=== PATIENT | male | born 1930 | race Caucasian/White ===

== ENCOUNTER → 2016-06-17 | Outpatient (CLI) | payer OTHER, MEDICARE ==
[~2016-06-17] VITALS: Ht 182.9 cm; Wt 68.9 kg
[~2016-06-17] MED LIST: APAP650 PO; ARICEPT10 M1 PO; ASPIR 8181 MG PO; FENTANYL PA25 MCG/HR TRANSDERM; FISHOIL PO; GLUCOSAMINE &1 EAC1 PO; LIPITOR40 MG PO; NEILMED SINUS R1 KIT; NORCO 5-325 TA1 EACH PO; PLAVIX 75 MG TA75 MG PO; PRAVACHOL40 MG PO; PRILOSEC20 MG PO; SEROQUEL 25 MG25 M1 PO; TRAMADOL 50 MG50 MG PO
--- NOTE | ~2016-06-17 | P ---
[facility] [place] [address] PROCEDURE REPORT Name: MERCEDEZ XAVIER JR Room #: [facility] [id number] Admission: 06/17/16 Attend Phys: Mercedez Mares DO Discharge: Date of : 28 Report #: [id number] THIS REPORT FOR: //name// CC: Mercedez Jiménez MD DATE OF SERVICE: 06/17/2016 DESCRIPTION OF PROCEDURE: Lumbar epidural steroid injection under fluoroscopic guidance. This is the first procedure of the first series that the patient is undergoing. After obtaining written consent, the patient was taken back to the fluoroscopy suite, placed in a prone position with pillow under the abdomen to decrease lumbar lordosis. The skin overlying the lumbosacral area was then prepped and draped in aseptic fashion. The L5-S1 vertebral interspace was then identified by AP fluoroscopy. The skin and subcutaneous tissue overlying the target site of injection was anesthetized with 3 mL 1% lidocaine. A 20-gauge 3-1/2-inch Tuohy needle was then advanced under fluoroscopic guidance towards the epidural space using a left paramedian approach. The epidural space was identified using loss of resistance to air technique. After negative aspiration for heme or cerebrospinal fluid, a total of 1 mL of Omnipaque was injected. A lumbar epidurogram was confirmed using both AP and lateral fluoroscopy. After negative aspiration for heme or cerebrospinal fluid, 5 mL of solution containing 2 mL 40 mg per mL, 80 mg total triamcinolone and 3 mL of lidocaine 1% was injected in increments. Contrast spread was noted posterior epidural space. The needle was then retracted approximately half way and needle tract flushed with 1 mL of 1% lidocaine. Needle was then removed. There were no apparent sensory or motor deficits in the lower extremity following the procedure. A sterile bandage was placed over the injection site. The heart rate, pulse, oximetry and blood pressure were continuously monitored after the procedure. There were no apparent complications. The patient tolerated the procedure well and was carefully escorted to the recovery room in stable condition. There were no apparent complications. After meeting discharge criteria, the patient was then discharged home. <ELECTRONICALLY SIGNED> By: Mercedez Mares DO 06/18/16 0743 [id number] Mercedez Mares DO /nt
--- NOTE | ~2016-06-17 | HPC ---
[facility] [place] [address] PAIN MANAGEMENT CONSULTATION Name: MERCEDEZ XAVIER JR [facility]: [facility] [id number] Admission: 06/17/16 Attend Phys: Mercedez Mares DO Discharge: Date of : 28 Report #: [id number] THIS REPORT FOR: //name// CC: Mercedez Jiménez MD DATE OF SERVICE: 06/17/2016 CHIEF COMPLAINT: Left hip pain. HISTORY OF PRESENT ILLNESS: As you know, the patient is a very pleasant 85-year-old male who recently was seen by Orthopedic Surgery, advised he needs a total hip arthroplasty on the left side. He sought a second opinion who recommended the patient trial an epidural injection under fluoroscopic guidance for suspected lumbar radiculopathy, at each visit prior to this, the patient was complaining of no radicular component. The patient returns requesting this epidural injection as his orthopedic surgeon is concerned his back may be the source of the pain. He indicates his pain today level 3/10. States pain is constant in nature, exacerbated with walking, improves with medications. He returns today requesting epidural injection. ALLERGIES: No known drug allergies. CURRENT MEDICATIONS: Hydrocodone, pravastatin, quetiapine, aspirin, and benazepril. SOCIAL HISTORY: The patient denies tobacco, IV or illicit drug use. Admits to 4 alcoholic beverages per week. He is retired, retired nearly 2 years ago. He is accompanied by his daughter. PHYSICAL EXAMINATION: VITAL SIGNS: Blood pressure 143/69, pulse 62, respiratory rate 16, unlabored. The patient is 100% on room air, height 6 feet tall, weight 152 pounds, BMI calculated 20.6. GENERAL: Well developed, well nourished, well hydrated, thin, 85-year-old male appearing stated age, pain is rated at 3/10. HEENT: Normocephalic, atraumatic. Pupils equal, round, reactive to light. EXTREMITIES: Show no clubbing, no cyanosis, no edema. MUSCULOSKELETAL: Afia test positive left, negative right. Seated straight leg raising negative. Supine straight leg raising negative. Modified Gaenslen's positive for axial low back pain. Gait antalgic favoring left lower extremity over right. Muscle bulk and tone equal and symmetrical in lower extremities, intact to light touch from L1 through S2 dermatomes. ASSESSMENT: [address] [address] PAIN MANAGEMENT CONSULTATION Name: MERCEDEZ XAVIER JR [id number] Admission: 06/17/16 Attend Phys: Mercedez Mares DO Discharge: Date of : 28 Report #: [id number] 1. Left hip pain. 2. Lumbosacral spondylosis without radiculopathy. 3. Lumbar radiculopathy. 4. 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 5. Lumbar degeneration. 6. Chronic intractable pain. PLAN: 1. The patient has been referred back to our clinic by his orthopedic surgeon for evaluation for suspected lumbar radiculopathy. I am unable to elicit any radicular symptoms in the patient's symptoms today. His pain is elicited with standing from seated position and weightbearing. He is able to localize pain directly over the left hip. He has returned today requesting this epidural injection to determine if his back may be the source of his symptoms. We have agreed to provide this injection as a diagnostic examination. I did advise the patient a long-term treatment and this patient's case may require a total hip arthroplasty per the orthopedic surgeon evaluation. There is a possibility the back is contributing some to the patient's symptoms, but again no radicular component was elicited with physical exam. The patient has been advised of the risks and benefits of the requested lumbar epidural injection. These risks include but are not necessarily limited to bleeding, bruising, infection, worsening pain, no relief of pain, also risk of temporary or permanent muscle weakness, temporary or permanent nerve damage, possible paralysis and . The patient states understood and wished to proceed. 2. No medication changes were made at today's visit. The patient to continue current medical therapy as previously prescribed. 3. We will see the patient back in followup visit on an as needed basis for possible repeat epidural injection. <ELECTRONICALLY SIGNED> By: Mercedez Mares DO 06/18/16 0743 1226 [id number] Mercedez Mares DO /nt
[2016-06-17 11:05] VITALS: BP 143/69
== END ==
LOC: PAIN 07:23
DX: M47.27 Other spondylosis with radiculopathy, lumbosacral region (principal); M51.26 Other intervertebral disc displacement, lumbar region; G89.29 Other chronic pain; Z79.82 Long term (current) use of aspirin; Z87.891 Personal history of nicotine dependence

== ENCOUNTER 2016-12-31 14:44 | Emergency (ER) | payer OTHER, MEDICARE ==
[~2016-12-31] VITALS: Ht 182.9 cm; Wt 68.0 kg
[~2016-12-31 14:44] MED LIST changes: +CITRATE OF MAG296 ML PO
[2016-12-31] MEDS ORDERED: MUPIROCIN15 GM TP (16:25)
== END 2016-12-31 16:52 | disposition home or self-care (01) ==
LOC: ER 14:44
DX: S63.286A Dislocation of proximal interphalangeal joint of right little finger, initial encounter (principal); S00.31XA Abrasion of nose, initial encounter; S00.81XA Abrasion of other part of head, initial encounter; S09.90XA Unspecified injury of head, initial encounter; F10.99 Alcohol use, unspecified with unspecified alcohol-induced disorder; Z87.891 Personal history of nicotine dependence; Z98.890 Other specified postprocedural states; W01.0XXA Fall on same level from slipping, tripping and stumbling without subsequent striking against object, initial encounter; Y93.89 Activity, other specified; Y92.89 Other specified places as the place of occurrence of the external cause; Y99.8 Other external cause status